=== PATIENT | male | born 1950 | race Caucasian/White ===

== ENCOUNTER 2021-02-13 08:59 | Emergency (ER) | payer MEDICARE, OTHER ==
[~2021-02-13 08:59] MED LIST: LORazepam 2 MG/ML Syringe ONE; Naloxone 2 MG/2 ML Syringe ONE
[2021-02-13] MEDS ORDERED: Haloperidol Lactate 5 MG/ML SDV ONE (09:01)
[2021-02-13] MEDS ORDERED: Sodium Chloride 0.9% 1,000 ML ONE (09:11)
[2021-02-13] MEDS ORDERED: LORazepam 2 MG/ML Syringe IVPUSH ONE ×2 (09:12→11:40)
[2021-02-13] MEDS ORDERED: fentaNYL 100 MCG/2 ML SDV ONE (09:24)
[2021-02-13 09:33] LABS: CHLORIDE,CL 105 mEq/L (98-106); SODIUM,NA 147 mEq/L (136-145)
[2021-02-13 10:09] LABS: O2 DELIVERY DEVICE RESUSCITATION BAG
--- NOTE | 2021-02-13 10:30 | EDM.PDOC ---
ED HPI GENERAL MEDICAL PROBLEM - General Chief Complaint: General Stated Complaint: unresponsive Time Seen by Provider: 02/13/21 09:10 Source of Information: Reports: EMS History Limitations: Reports: Altered Mental Status, Combative/Threatening - History of Present Illness INITIAL COMMENTS - FREE TEXT/NARRATIVE: Sahil is a 70 yo male who was brought into the ED unresponsive with concerns of cardiac arrest. EMS was called to patient's home for unresponsive male who was found in his bathroom. Girlfriend had stated to EMS he had stated he was going to go to the bathroom and she went to check on him and was found on the floor. She had stated she felt he was having a seizure, no prior history. She denies any illicit drug use. EMS states blood sugar was 124 en route. Upon arrival, CPR was in progress. Patient did have femoral pulse immediately. Attempted to get vitals and patient became combative. Patient did not show any sign of unilateral weakness. Pupils were fixed. Patient was given 2mg of Ativan and 5mg of Haldol which patient continued to fight. Narcan was given on arrival as well. Proceeded with RSI and 50mg of Etomidate and 200mg of Rocuronium 200mg. 7.5mm ET tube was placed. Confirmation via chest x-ray did show tip to be 1.5cm above the keith after repositioning of tube. NG tube was passed. Patient was given 5mg of Versed and 100mcg of Fentanyl. Patient has IV access to the left brachial and right radial. [facility] was immediately contacted via [facility]. Dr. Bernstein, ER physician, did accept transfer at [facility] in [place]. Patient did not receive CT scan of the brain d/t condition/situation. Laboratory work was unremarkable, cardiac enzymes normal. EKG did not show any ST changes. EKG did show atrial paced rhythm. Initial vital signs did show patient to be tachycardic and hypertensive. BP did improve to 147/72 and pulse in the low 100's. Reviewed patient's chart via information from the ID and does show patient to have CAD with prior stent placement, atrial fibrillation, recurrent history of DVT's, chronic tobacco use, sleep apnea. See nurses and [facility] notes for complete list of vitals and time frame of events. Past Medical History Cardiovascular History: Reports: Afib, Blood Clots/VTE/DVT, CAD, Heart Failure, High Cholesterol, Hypertension, Pacemaker, Stents Respiratory History: Reports: Sleep Apnea Gastrointestinal History: Reports: GERD, Other (See Below) (Pate's esophagus) Neurological History: Reports: Neuropathy, Peripheral Psychiatric History: Reports: Depression - Past Surgical History Cardiovascular Surgical History: Reports: Coronary Artery Stent, Pacer GI Surgical History: Reports: EGD Social & Family History - Tobacco Use Tobacco Use Status *Q: Current Status Unknown ED ROS GENERAL - Review of Systems Review Of Systems: Unable To Obtain Reason Not Obtained: unresponsive/agitation ED EXAM, GENERAL - Physical Exam Exam: See Below Exam Limited By: Altered Mental Status Eye Exam: Bilateral Eye: Abnormal Pupil Ears: Normal External Exam Nose: Normal Inspection, No Blood Head: Atraumatic, Normocephalic Neck: Other (large short neck) Respiratory/Chest: Decreased Breath Sounds, Crackles Cardiovascular: No Murmur, Tachycardia Peripheral Pulses: 2+: Radial (L) GI/Abdominal: Soft, No Distention, Other (Obese) Neurological: Unresponsive Skin Exam: Warm, Dry, Other (stasis dermatitis bilateral lower extremities) ED GENERAL MEDICAL PROCEDURES - Endotracheal Intubation ET Intubation Indication: Airway Protection Preparation: Suction, BVM Set Up, Difficult Airway Equip Airway Assessment: Obese, Large Tongue Pre-Oxygenation: Assisted with BVM, 100% FiO2 Anesthesia Meds: Etomidate, Rocuronium Placement: Orotracheal Cords Visualized: Yes ETT Size In mm: 7.5 Number of Attempts: 2 Confirmed By: Bilateral Breath Sounds, Chest Xray Tube Secured By: By RN Course - Orders/Labs/Meds Orders: Active Orders 24 hr Category Date Time Status Chest 1V Frontal [CR] Routine Exams 02/13/21 Ordered BLOOD GAS ARTERIAL [BG] Stat Lab 02/13/21 10:07 Results Labs: Laboratory Tests 02/13/21 02/13/21 02/13/21 Range/Units 09:08 09:08 09:08 WBC 7.1 (5.0-10.0) 10^3/uL RBC 4.93 (4.50-6.00) 10^6/uL Hgb 14.4 (14.0-18.0) g/dL Hct 43.5 (40.0-54.0) % MCV 88.2 (82.0-94.0) fL MCH 29.2 (27.0-32.0) pg MCHC 33.1 (33.0-38.0) g/dL RDW Coeff of Latonya 14.9 (11.0-15.0) % Plt Count 253 (150-400) 10^3/uL Neut % (Auto) 57.4 (35-85) % Lymph % (Auto) 32.9 (10-55) % [place] % (Auto) 9.0 (0-16) % Eos % (Auto) 0.6 (0-5) % Baso % (Auto) 0.1 (0-3) % Neut # (Auto) 4.07 (1.80-7.00) 10^3/uL Lymph # (Auto) 2.33 (1.00-4.80) 10^3/uL [place] # (Auto) 0.64 (0.00-0.80) 10^3/uL Eos # (Auto) 0.04 (0.00-0.45) 10^3/uL Baso # (Auto) 0.01 10^3/uL PT 18.4 H (9.7-12.3) SEC INR 1.75 H (0.92-1.18) APTT 30.0 (23.2-32.3) SEC Sodium 147 H (136-145) mEq/L Potassium 3.4 L (3.5-5.0) mEq/L Chloride 105 (98-106) mEq/L Carbon Dioxide 16 L (21-32) mmol/L BUN 17 (7-18) mg/dL Creatinine 1.5 H (0.7-1.3) mg/dL Est Cr Clr Drug Dosing TNP Estimated GFR (MDRD) 46 L (>=60) mL/min Glucose 197 H (75-99) mg/dL Calcium 8.8 (8.4-10.1) mg/dL Total Bilirubin 0.3 (0.0-1.0) mg/dL AST 40 H (15-37) U/L ALT 64 (12-78) U/L Alkaline Phosphatase 91 (46-116) U/L Lactate Dehydrogenase 206 H (100-190) U/L Creatine Kinase 212 (35-232) U/L Troponin I < 0.017 (0.00-0.06) ng/mL Total Protein 8.1 (6.4-8.2) g/dL Albumin 4.0 (3.4-5.0) g/dL Lipase 121 (73-393) U/L Meds: Medications Discontinued Medications Generic Name Dose Route Start Last Admin Trade Name Carlos PRN Reason Stop Dose Admin Fentanyl Confirm 02/13/21 09:24 Fentanyl 100 Mcg/2 Ml Sdv Administered 02/13/21 09:25 Dose 100 mcg .ROUTE .STK-MED ONE Haloperidol Lactate Confirm 02/13/21 09:01 Haloperidol Lactate 5 Mg/Ml Sdv Administered 02/13/21 09:02 Dose 5 mg .ROUTE .STK-MED ONE Sodium Chloride Confirm 02/13/21 09:11 Normal Saline Administered 02/13/21 09:12 Dose 1,000 mls @ as directed .ROUTE .STK-MED ONE Lorazepam Confirm 02/13/21 08:47 Lorazepam 2 Mg/Ml Syringe Administered 02/13/21 08:48 Dose 2 mg .ROUTE .STK-MED ONE Lorazepam 2 mg 02/13/21 09:12 Lorazepam 2 Mg/Ml Syringe IVPUSH 02/13/21 09:13 ONETIME ONE Naloxone HCl Confirm 02/13/21 08:52 Naloxone 2 Mg/2 Ml Syringe Administered 02/13/21 08:53 Dose 2 mg .ROUTE .STK-MED ONE Departure - Departure Time of Disposition: 10:10 Disposition: DC/Tfer to Acute Hospital 02 Clinical Impression: Cardiac arrest, Unresponsive state, Agitation - Discharge Information *PRESCRIPTION DRUG MONITORING PROGRAM REVIEWED*: No *COPY OF PRESCRIPTION DRUG MONITORING REPORT IN PATIENT SUBHASH: No Referrals: jK Sanches PA-C [Primary Care Provider] - - Problem List & Annotations (1) Agitation SNOMED Code(s): 800674444 Code(s): R45.1 - RESTLESSNESS AND AGITATION Status: Acute Current Visit: Yes (2) Cardiac arrest SNOMED Code(s): 011147831 Code(s): I46.9 - CARDIAC ARREST, CAUSE UNSPECIFIED Status: Acute Current Visit: Yes (3) Unresponsive state SNOMED Code(s): 598803336 Code(s): R41.89 - OTH SYMPTOMS AND SIGNS W COGNITIVE FUNCTIONS AND AWARENESS Status: Acute Current Visit: Yes - My Orders Last 24 Hours: My Active Orders 02/13/21 Chest 1V Frontal [CR] Routine 02/13/21 10:07 BLOOD GAS ARTERIAL [BG] Stat - Assessment/Plan Last 24 Hours: My Active Orders 02/13/21 Chest 1V Frontal [CR] Routine 02/13/21 10:07 BLOOD GAS ARTERIAL [BG] Stat Plan: Please see history for complete details while in ED. Patient transferred via [facility] to [facility]. Dr. Bernstein, ER physician, accepting provider. Patient's vitals were stable at transfer. Airway secured. Unable to provide risks and benefits of transfer due to condition/unresponsiveness. No family available.
[2021-02-13 10:31] LABS: PCO2 ARTERIAL 73 mm/Hg0 (35-45); PO2 ARTERIAL 255 mm/Hg (80-100)
[2021-02-13 10:32] LABS: BICARBONATE,ARTERIAL 21.7 mm/L (22.0-26.0); O2 SATURATION ARTERIAL 100 % (95-98)
[2021-02-13 10:37] LABS: BASE EXCESS ARTERIAL -8.3 (-2.0-3.0)
[2021-02-13] MEDS ORDERED: Midazolam 1 MG/ML 2 ML SDV IVPUSH ONE (11:40)
[2021-02-13] MEDS ORDERED: fentaNYL 50 MCG/ML SDV IVPUSH ONE (11:40)
[2021-02-13] MEDS ORDERED: Haloperidol Lactate 5 MG/ML SDV IVPUSH ONE (11:40)
[2021-02-13] MEDS: Etomidate 2 MG/ML 10 ML SDV IVPUSH ONE ×2 (11:40→11:49)
[2021-02-13] MEDS ORDERED: Rocuronium 50 MG/5 ML Vial IVPUSH ONE (11:48)
== END 2021-02-13 11:54 ==
LOC: CC.ED 08:59
DX: I46.9 Cardiac arrest, cause unspecified (principal); R45.1 Restlessness and agitation; R41.89 Other symptoms and signs involving cognitive functions and awareness; I11.0 Hypertensive heart disease with heart failure; I50.9 Heart failure, unspecified; E78.00 Pure hypercholesterolemia, unspecified; I25.10 Atherosclerotic heart disease of native coronary artery without angina pectoris; Z95.0 Presence of cardiac pacemaker
CPT/HCPCS: 31500; 36415; 36600; 51702; 71045; 80053; 82550; 82803; 83615; 83690; 84484; 85025; 85610; 85730; 93005; 93010; 96374; 96375; 99285; 99285-25; J1630; J2060; J2250; J3010; J3490